=== PATIENT | male | born 1960 | race Caucasian/White ===

== ENCOUNTER 2016-11-10 20:27 | Emergency (ER) | payer OTHER ==
[~2016-11-10] VITALS: Ht 160 cm; Wt 55.9 kg
[2016-11-10 20:30] VITALS: TEMP 36.7; Ht 160 cm; Wt 55.9 kg
[2016-11-10] MEDS ORDERED: PHEN-310 PO (21:11)
[2016-11-10] MEDS ORDERED: CHOL1000 PO (21:11)
[2016-11-10] MEDS ORDERED: PRLSR20 PO (21:11)
[2016-11-10] MEDS ORDERED: MULT-506 PO (21:11)
[2016-11-10] MEDS ORDERED: PROPARACAINE HCL 0.5% OP SOLN 15 ML BTL ONE (21:59)
[2016-11-10] MEDS ORDERED: CIPROFLOXACIN HCL 0.3% OP SOLN 2.5 ML BTL OP ONE (22:15)
[2016-11-10] MEDS ORDERED: NORCO 5/325MG HOME PACK PO ONE (22:15)
[2016-11-10 22:30] VITALS: BP 134/75; PULSE 70; O2SAT 98
--- NOTE | 2016-11-11 01:47 | EMERGENCY ROOM VISIT NOTE ---
ED Visit Note First contact with patient: 21:56 CHIEF COMPLAINT: Eye pain HISTORY OF PRESENT ILLNESS: This 56-year-old male patient presents to the emergency department complaining of pain in the left eye over the past several hours. The patient is here locally for the [employer]. He is accompanied by a family member who provides consent to treat and states that he was accidentally struck by a baseball hat which was thrown, and struck him in the face. The family is concerned because the patient had a retinal detachment in this eye 3 months ago and follows regularly with ophthalmology. There has been a constant moderate pain and irritation, redness and tearing in the eye. There is a mild blurring of vision at times and light bothers the eye. The vision has not been decreased over all. The patient does not wear contacts. The patient rates the pain as dull and 2/10. Tetanus shot is reportedly up to date. REVIEW OF SYSTEMS: A 6 system review of systems was completed with positives and pertinent negatives listed in the HPI. ALLERGIES: Penicillin MEDICATIONS: See EMR PMH: See EMR SOCIAL HISTORY: Lives with family PHYSICAL EXAM: Vital Signs: Reviewed Nurse's notes, vital signs stable. Visual acuity unable to be performed by patient GENERAL: This is a white male, in no acute distress, but who is uncomfortable from the eye problem. Well-developed well-nourished. EYES: The pupils are equal round and reactive to light and accommodation. EOMs are full and without tenderness. There is discharge of clear tears from the left eye which is injected. There is no foreign body visible under the eyelid even after lid eversion. Funduscopic exam reveals no hemorrhages, papilledema, or other abnormalities. No foreign body was seen embedded in the cornea under slit lamp exam. The cornea was clear and no hyphema was seen. Fluorescein uptake was observed with ultraviolet light significant for a corneal abrasion at 3:00. No evidence of retinal detachment or injury. EMERGENCY DEPARTMENT COURSE: Physical exam and history were performed. Nursing notes and EMR were reviewed. The patient appears to have suffered an injury to his left eye at the [employer] today. He has a corneal abrasion on examination. He will be given a home pack of Vicodin as well as some Ciloxan. The patient is to follow with his industrial machinery mechanic upon returning home. He was invited back to the ER with any new, worsening, or concerning symptoms. Current/Historical Medications Scheduled Cholecalciferol (Vitamin D3), 1 TAB PO DAILY Multivitamin (Multivitamin), 1 TAB PO DAILY Omeprazole (Prilosec), 20 MG PO DAILY Phenytoin Sodium Extended (Dilantin), 30 MG PO DAILY Allergies Coded Allergies: Penicillins (Unverified Allergy, Severe, PER FAMILY MEMBER, 11/10/16) Vital Signs Date Time Temp Pulse Resp B/P (MAP) Pulse Ox O2 Delivery O2 Flow Rate FiO2 11/10/16 22:30 70 16 134/75 98 11/10/16 20:30 36.7 83 16 145/86 98 Room Air Departure Information Impression Primary Impression: Corneal abrasion, left Dispostion Home / Self-Care Condition FAIR Referrals No Doctor, Assigned (PCP) Forms HOME CARE DOCUMENTATION FORM, IMPORTANT VISIT INFORMATION Patient Instructions My [facility] Additional Instructions You were seen and evaluated today on an emergency basis only. This is not a substitute for, or an effort to provide, complete comprehensive medical care. It is not possible to recognize and treat all injuries or illnesses in a single emergency department visit. For this reason it is recommended that you followup with your industrial machinery mechanic upon returning home for ongoing care and evaluation. Use Ciloxan Eye Drops: Instill 1-2 drops into the conjunctival sac every 2 hours while awake for 2 days and 1-2 drops every 4 hours while awake for the next 5 days [place] (hydrocodone/acetaminophen) 5/325 mg (homepack) every 6 hours as needed for worsening breakthrough pain. Do not drink or drive on [place]. This medication will likely make you tired. Do not take [place] and Tylenol at the same time as both contain acetaminophen. [place] may cause constipation. You may wish to take an [id number] stool softener like Colace if this occurs. You are welcome to return to the emergency department anytime with new, worsening, or concerning symptoms.
== END 2016-11-10 22:31 | disposition home or self-care (01) ==
LOC: C.EDB 20:28 → C.EDD 22:31
DX: S05.02XA Injury of conjunctiva and corneal abrasion without foreign body, left eye, initial encounter (principal); X58.XXXA Exposure to other specified factors, initial encounter